=== PATIENT | female | born 1930 | race Caucasian/White ===

== ENCOUNTER 2018-01-17 05:47 | Inpatient (IN) | payer MEDICARE ==
[~2018-01-17] VITALS: Ht 149.9 cm; Wt 53.5 kg
[~2018-01-17 05:47] MED LIST: APIX5TAB PO; CALC12502 PO; DILT60TA PO; FERR325T18 PO; LACTCAP8 PO; METF500T PO; METO1TAB42 PO; NON-325T6 PO; PANT40TA3 PO; TH S8.6T PO; VITA250T3 PO
[2018-01-17] MEDS ORDERED: METOPROLOL TARTRATE 25 MG TAB PO PRN (06:30)
[2018-01-17] MEDS ORDERED: CHLORHEXIDINE GLUCONATE 4% SOLN 120 ML BTL TOPICAL SCH (06:30)
[2018-01-17] MEDS ORDERED: SODIUM CHLORIDE 0.9% IV SCH (06:30)
[2018-01-17] MEDS ORDERED: CHLORHEXIDINE GLUCONATE 2 % 1 PACK (2 CLOTHS) TOPICAL PRN (06:30)
[2018-01-17] MEDS ORDERED: CEFAZOLIN INJ 2,000 MG in SODIUM CHLORIDE 0.9% INJ 100 ML IV SCH (06:30)
[2018-01-17] MEDS ORDERED: POVIDONE IODINE 5% (ANTISEPSIS KIT) 4 APPLICATIONS EACH NARE PRN (06:30)
[2018-01-17] MEDS ORDERED: TRANEXAMIC ACID IV SCH (06:30)
[2018-01-17] MEDS ORDERED: INSULIN HUMAN REGULAR 1,000 UNITS/10 ML VIAL SQ PRN (06:30)
[2018-01-17] MEDS ORDERED: SODIUM CHLORID 0.9% 500 ML IV PRN (06:30)
[2018-01-17] MEDS ORDERED: LACTATED RINGER'S 1000 ML IV PRN (06:30)
[2018-01-17] MEDS ORDERED: VANCOMYCIN 1 GM/200 ML INJ 200 ML IV SCH (06:45)
--- NOTE | 2018-01-17 06:45 | RADRPT ---
EXAM DATE/TIME: 01/17/2018 06:29 [facility] COMPARISON: No previous studies available for comparison. INDICATIONS : Evaluate for pneumothorax, pneumonia, or other communicable disease. Pre op left leg surgery. MEDICAL HISTORY : None. SURGICAL HISTORY : None. ENCOUNTER: Initial ACUITY: 1 day PAIN SCORE: 0/10 LOCATION: Bilateral chest FINDINGS: A single view of the chest demonstrates the lungs to be symmetrically aerated without evidence of mas s, infiltrate or effusion. The cardiomediastinal contours are unremarkable. Osseous structures are intact. CONCLUSION: No acute disease. Drew Reyes MD on January 17, 2018 at 6:43 Board Certified Radiologist. This report was verified electronically.
[2018-01-17] MEDS ORDERED: KLOR20TA3 PO (07:26)
[2018-01-17 07:37] LABS: AUTOMATED NEUTROPHIL # 5.1 TH/MM3 (1.8-7.7); BASOPHIL % 0.4 % (0.0-2.0); EOSINOPHIL # 0.2 TH/MM3 (0-0.4); EOSINOPHIL % 2.1 % (0.0-4.0); HEMATOCRIT 32.4 % (35.0-46.0); HEMOGLOBIN 10.9 GM/DL (11.6-15.3); LYMPH % 20.8 % (9.0-44.0); LYMPHOCYTE # 1.5 TH/MM3 (1.0-4.8); MEAN CELL VOLUME 94.7 FL (80.0-100.0); MEAN CORPUSCULAR HGB CONC 33.8 % (32.0-36.0); MEAN PLATELET VOLUME 8.5 FL (7.0-11.0); MONO % 7.2 % (0.0-8.0); MONOCYTE # 0.5 TH/MM3 (0-0.9); NEUT % 69.5 % (16.0-70.0); PLATELET COUNT 233 TH/MM3 (150-450); RED BLOOD COUNT 3.42 MIL/MM3 (4.00-5.30); RED CELL DISTRIBUTION WIDTH 19.4 % (11.6-17.2); WHITE BLOOD COUNT 7.3 TH/MM3 (4.0-11.0)
[2018-01-17 07:59] LABS: BICARBONATE 25.4 MEQ/L (21.0-32.0); CALCIUM 8.4 MG/DL (8.5-10.1); CREATININE 1.03 MG/DL (0.50-1.00)
[2018-01-17] MEDS ORDERED: ACETAMINOPHEN 1000 MG/100 ML 100 ML IV ONE (08:48)
[2018-01-17] MEDS ORDERED: ceFAZolin 2 GM PREMIX 50 ML ONE (09:00)
[2018-01-17] MEDS ORDERED: HEPARIN SODIUM - SQ 10,000 UNITS/ML VIAL ONE (09:01)
[2018-01-17] MEDS ORDERED: GENTAMICIN SULFATE 80 MG/2 ML VIAL ONE (09:06)
[2018-01-17] MEDS ORDERED: VANCOMYCIN HCL 1000 MG VIAL ONE (10:45)
[2018-01-17] MEDS ORDERED: ERGOCALCIFEROL (VIT D2) 50,000 UNIT CAP PO SCH (11:30)
[2018-01-17] MEDS ORDERED: MORPHINE SULFATE 4 MG/ML INJ IV PUSH PRN (11:30)
[2018-01-17] MEDS ORDERED: ONDANSETRON HCL 4 MG/2 ML VIAL IVP PRN (11:30)
[2018-01-17] MEDS ORDERED: ENOXAPARIN SODIUM 30 MG/0.3 ML SYRINGE SQ SCH (11:30)
[2018-01-17] MEDS: LACTATED RINGER'S 1000 ML INJ 1,000 ML IV SCH (11:30)
[2018-01-17] MEDS ORDERED: Post-op Orders (for Pharmacy) XX ONE (11:30)
[2018-01-17] MEDS ORDERED: NALOXONE HCL 0.4 MG/ML AMP IV PUSH PRN (11:30)
[2018-01-17] MEDS ORDERED: diphenhydrAMINE HCL 25 MG CAP PO PRN (11:30)
[2018-01-17] MEDS ORDERED: HYDROmorphone HCL PF 2 MG/ML VIAL ONE (11:34)
--- NOTE | 2018-01-17 11:41 | PD.OP ---
cc: Kenny Kay MD Operative Report Date of Surgery: Jan 17, 2018 Preoperative Diagnosis: Right femur periprosthetic fracture nonunion Postoperative Diagnosis: Procedure: Removal of deep hardware, open reduction total fixation left femur periprosthetic fracture nonunion Anesthesia: Gen. Surgeon: Kenny Kay Mounter Sousaphones(s): BUSTER Wilkerson PA-C The surgical procedure was assisted by my physician child care center assistant director. My P.A. presence was necessary throughout this case for the manipulation and positioning of the surgical extremity. My P.A. was assisting me throughout the duration of this procedure. The skill set of a physician child care center assistant director was medically necessary to complete this procedure. During the surgical case the certified surgical tech/first assistant was working at the back table and the physician child care center assistant director was directly assisting me. Operation and Findings: This patient previously had a left hip fracture treated with bipolar hemiarthroplasty. She had a secondary fall resulting in a periprosthetic fracture. This was treated with open reduction internal fixation. Patient was partial weightbearing and developed subsequent displacement of fracture. Patient was referred to me for definitive management of this injury. Preoperatively patient was seen and examined. I reviewed the risks and benefits of surgery in depth with patient and her family. Informed consent was obtained, operative site was marked. Patient was brought to the OR, placed on OR table, and given IV sedation with GETA. IV antibiotics were administered and timeout procedure was performed. Patient was placed in lateral decubitus position and the left leg was prepped with alcohol, followed with Hibiclens, draped in usual sterile fashion. A timeout procedure was performed. The procedure began with a 10 incision over the lateral aspect of the femur. Subcutaneous tissue was dissected with Bovie. Iliotibial band was split in line with fibers. The vastus lateralis fascia was incised. The muscle was reflected anteriorly. At this point the hardware was identified. Scar tissue was incised around the hardware to expose the plate. At this point attention was turned hardware removal. The screws were loosened and removed. Cables were cut. The plate was now removed. Next attention was turned towards the fracture. At this point the fracture was visualized. Traction was applied. Fracture was manipulated. The fracture reduced into excellent alignment. Fracture tenaculums were used to hold provisional fixation. Fluoroscopy confirmed anatomic reduction of the fracture. At this point attention was turned to plate placement. A lateral femoral plate was selected. The plate was placed underneath the vastus lateralis and over the top of the greater trochanter. Steinmann pins were used to hold the plate to bone. Multiplanar fluoroscopy confirmed appropriate placement of plate. Multiple 4.5 cortical screws were now placed to compress plate to bone. 4 additional cables were passed around the femur. Care was taken to avoid injury to neurovascular structures. Cables were tensioned appropriately. Multiple locking screws were now placed in the proximal and distal segments of the distal femur. All screws were predrilled and premeasured for appropriate length. Final fluoroscopy revealed excellent alignment of fracture with well-placed hardware. Wound was thoroughly irrigated. Fascia was closed with #1 Vicryl. Subcutaneous tissue was closed with 3-0 Vicryl. Skin was closed with kerry. Sterile dressings were applied. The patient was transferred to recovery in stable condition. Needle and sponge counts were correct. Kenny Kay MD Jan 17, 2018 11:41
--- NOTE | 2018-01-17 11:41 | RADRPT ---
EXAM DATE/TIME: 01/17/2018 11:10 [facility] COMPARISON: No previous studies available for comparison. INDICATIONS : Open reduction internal fixation left femur. MEDICAL HISTORY : None. SURGICAL HISTORY : None. ENCOUNTER: Initial ACUITY: 1 day PAIN SCORE: Non-responsive. LOCATION: Left Femur FINDINGS: Postop left total hip replacement. Plate and screw fixation of the proximal femur with cerclage wires and multiple screws. CONCLUSION: 1. Fixation left femur. Satnam Walker MD on January 17, 2018 at 11:38 Board Certified Radiologist. This report was verified electronically.
[2018-01-17] MEDS ORDERED: DEXTROSE 50% IN WATER 50 ML VIAL(D50) IV PUSH PRN (11:45)
[2018-01-17] MEDS ORDERED: GLUCAGON 1 MG/ML VIAL OTHER PRN (11:45)
[2018-01-17] MEDS ORDERED: GLYCOPYRROLATE 1 MG/5 ML SYRINGE IV PUSH ONE (12:00)
[2018-01-17] MEDS ORDERED: LACTATED RINGER'S 1000 ML INJ 1,000 ML IV ONE (12:00)
[2018-01-17] MEDS ORDERED: PROPOFOL 200 MG/20 ML AMP IV ONE (12:00)
[2018-01-17] MEDS ORDERED: PHENYLEPH/NS 1000 MCG/10 ML SYR IV ONE (12:00)
[2018-01-17] MEDS: INSULIN NovoLIN REGULAR SUPPLEMENTAL SCALE SQ SCH ×3 (12:00→21:17)
[2018-01-17] MEDS ORDERED: DEXAMETHASONE SOD PHOS 4 MG/ML VIAL IV ONE (12:00)
[2018-01-17] MEDS ORDERED: ROCURONIUM INJ 50 MG/5 ML SYRINGE IV PUSH ONE (12:00)
[2018-01-17] MEDS ORDERED: ONDANSETRON HCL 4 MG/2 ML VIAL IV ONE (12:00)
[2018-01-17] MEDS ORDERED: LIDOCAINE HCL 1% PF 5 ML SYRINGE OTHER ONE (12:00)
[2018-01-17] MEDS ORDERED: NEOSTIGMINE 5 MG/5 ML SYRINGE IV PUSH ONE (12:00)
[2018-01-17] MEDS ORDERED: DO NOT ADM ANY ANTICOAGULANT DRUGS PRN (12:06)
[2018-01-17] MEDS ORDERED: *ONDANSETRON 4 MG VIAL PERIprocedural Use ONLY ONE (12:13)
[2018-01-17] MEDS ORDERED: *PROMETHAZINE 25 MG/ML VIAL PERIprocedural use ONLY ONE (12:26)
[2018-01-17] MEDS ORDERED: *LABETALOL HCL 100 MG/20 ML VIAL PERIprocedural Use ONLY ONE (12:38)
[2018-01-17] MEDS: DILTIAZEM HCL 60 MG TAB PO SCH ×3 (13:00→21:15)
[2018-01-17] MEDS ORDERED: DILTIAZEM HCL 25 MG/5 ML VIAL ONE (13:46)
[2018-01-17] MEDS ORDERED: *ENALAPRILAT 1.25 MG/ML VIAL PERIprocedural Use ONLY ONE (14:11)
[2018-01-17] MEDS ORDERED: MORPHINE SULFATE 2 MG/ML INJ ONE (14:58)
[2018-01-17] MEDS ORDERED: DILTIAZEM HCL 50 MG/10 ML VIAL IV ONE (15:00)
[2018-01-17 15:30] VITALS: BP 129/69; PULSE 89; RESP 17; TEMP 97.3; O2SAT 98
--- NOTE | 2018-01-17 15:49 | EKG ---
Date Performed: 01/17/2018 Time Performed: 06:48:43 PTAGE: 87 years EKG: ATRIAL FIBRILLATION WITH SLOW VENTRICULAR RESPONSE MARKED LEFT AXIS DEVIATION PATTERN CONSI STENT WITH PULMONARY DISEASE MODERATE VOLTAGE CRITERIA FOR LVH, CONSIDER NORMAL VARIANT ABNORMAL ECG PREVIOUS TRACING : 03/17/2012 09.15 Atiral fibrillation is new since prior tracing. DOCTOR: Mika Peralta Interpretating Date/Time 01/17/2018 15:45:39
--- NOTE | 2018-01-17 16:22 | PD.CONS ---
HPI Service [facility] Hospitalists Consult Requested By Dr. Prieto Reason for Consult Medical management Primary Care Physician Jason Parry MD Diagnoses: History of Present Illness 87-year-old white female admitted for open reduction internal fixation of traumatic left periprosthetic femur fracture. Hospitalist consulted for medical management. Per the patient she had been in her usual state of health up until recently when she lost her balance at home landing on her left leg and experiencing severe pain. She had been at a rehab facility just prior to this where she was discharged to after a MINOR. However, she had a 2dry fall resulting in a periprosthetic fracture of the left femur. This was treated with open reduction internal fixation. Patient denies having any chest pain or shortness of breath surrounding her most recent left leg fracture event. She is in her room at this time with her and sister present. They state that together they manage her medications. 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 Patient also has a known history of atrial fibrillation and is on diltiazem and Lopressor. She is also a diabetic. Review of Systems Except as stated in HPI: all other systems reviewed are Neg Past Family Social History Allergies: Coded Allergies: No Known Allergies (Unverified Allergy, Unknown, 01/17/18) Past Medical History Left hip fracture Right radius fracture Atrial fibrillation DVT Diabetes Past Surgical History left MINOR Family History HTN Social History lives with her Physical Exam Vital Signs Vital Signs Date Time Temp Pulse Resp B/P (MAP) Pulse Ox O2 Delivery O2 Flow Rate FiO2 01/17/18 15:30 97.3 89 17 129/69 (89) 98 01/17/18 15:08 97.9 84 16 149/88 (108) 99 Room Air 01/17/18 14:15 84 16 152/56 (88) 99 Room Air 01/17/18 13:45 82 17 177/77 (110) 99 Room Air 01/17/18 13:15 95 15 170/70 (103) 99 Room Air 01/17/18 13:00 82 15 160/65 (96) 99 Nasal Cannula 3 01/17/18 12:45 89 15 166/124 (138) 99 Nasal Cannula 3 01/17/18 12:30 83 15 205/77 (119) 99 Nasal Cannula 3 01/17/18 12:13 97.9 77 15 117/69 (85) 99 Nasal Cannula 3 01/17/18 07:34 97.9 54 20 143/57 (85) 97 Physical Exam VS: afebrile GENERAL: Lying in bed, no acute distress, awake, alert, thin elderly female SKIN: Warm and dry. EYES: No scleral icterus. No injection or drainage. ENT: No nasal bleeding or discharge. Mucous membranes pink and moist. CARDIOVASCULAR: Regular rate and rhythm. no murmurs RESPIRATORY: No accessory muscle use. Clear to auscultation. Breath sounds equal bilaterally. GASTROINTESTINAL: Abdomen soft, non-tender, nondistended. Extremities: No clubbing, cyanosis. Proximal left leg with postop dressing with no surrounding erythema. MUSCULOSKELETAL: adequate muscle bulk and tone for age and habitus; bilateral feet are neurovascularly intact, right forearm is in cast NEUROLOGICAL: Awake and alert. No obvious cranial nerve deficits. No facial droop nor slurred speech noted. PSYCHIATRIC: Appropriate mood and affect; insight and judgment normal. Laboratory Laboratory Tests Test 01/17/18 07:20 01/17/18 13:39 White Blood Count 7.3 Red Blood Count 3.42 Hemoglobin 10.9 Hematocrit 32.4 Mean Corpuscular Volume 94.7 Mean Corpuscular Hemoglobin 32.0 Mean Corpuscular Hemoglobin Concent 33.8 Red Cell Distribution Width 19.4 Platelet Count 233 Mean Platelet Volume 8.5 Neutrophils (%) (Auto) 69.5 Lymphocytes (%) (Auto) 20.8 Monocytes (%) (Auto) 7.2 Eosinophils (%) (Auto) 2.1 Basophils (%) (Auto) 0.4 Neutrophils # (Auto) 5.1 Lymphocytes # (Auto) 1.5 Monocytes # (Auto) 0.5 Eosinophils # (Auto) 0.2 Basophils # (Auto) 0.0 CBC Comment DIFF FINAL Differential Comment Blood Urea Nitrogen 12 Creatinine 1.03 Random Glucose 128 Calcium Level 8.4 Sodium Level 142 Potassium Level 4.0 Chloride Level 109 Carbon Dioxide Level 25.4 Anion Gap 8 Estimat Glomerular Filtration Rate 51 Date/Time Source Procedure Growth Status 01/17/18 10:24 Wound Other Fungal Smear - Final NO FUNGAL ELEMENTS SEEN. Resulted 01/17/18 10:24 Wound Other Fungal Culture Pending Resulted Result Diagram: 01/17/18 0701/17/18 0720 Imaging Last Impressions Femur X-Ray 01/17/18 0000 Signed Impressions: Service Date/Time: Wednesday, January 17, 2018 11:10 - CONCLUSION: 1. Fixation left femur. Satnam Walker MD Chest X-Ray 01/17/18 0000 Signed Impressions: Service Date/Time: Wednesday, January 17, 2018 06:29 - CONCLUSION: No acute disease. Drew Reyes MD Assessment and Plan Assessment and Plan Left femur periprosthetic fracture now status post ORIF -Orthopedic managing this as well as pain control A. fib -Continue home diltiazem and Toprol xL -Given stroke risk, Eliquis is appropriate to continue Hypertension -Stable at this time, continue home medications Hx of DVT - continue eliquis 5 mg BID DM - may proceed with home metformin - modified diet right possible radius fx - remain in cast, to f/u with original orthopedic surgeon for further management Juice Cha MD Jan 17, 2018 16:22
[2018-01-17 17:13] VITALS: O2SAT 97
[2018-01-17] MEDS: metFORMIN HCL 500 MG TAB PO SCH (17:37)
[2018-01-17] MEDS: ACETAMINOPHEN/HYDROcodone 325 MG/7.5 MG TAB PO PRN (17:37)
[2018-01-17] MEDS: CEFAZOLIN INJ 2,000 MG in SODIUM CHLORIDE 0.9% INJ 100 ML IV SCH (18:26)
[2018-01-17 20:21] VITALS: BP 143/69; PULSE 82; RESP 17; TEMP 98.2; O2SAT 97
[2018-01-17] MEDS: DOCUSATE SODIUM 50 MG/SENNA 8.6 MG TAB PO SCH (21:15)
[2018-01-17] MEDS: POTASSIUM CHLORIDE 20 MEQ CONTROLLED RELEASE TAB PO SCH (21:15)
[2018-01-17 21:49] VITALS: O2SAT 96
[2018-01-18] VITALS (7 sets, daily range): BP systolic 116–149; BP diastolic 57–67; PULSE 73–104; RESP 16–18; TEMP 97.5–98.2; O2SAT 95–100
[2018-01-18] MEDS: CEFAZOLIN INJ 2,000 MG in SODIUM CHLORIDE 0.9% INJ 100 ML IV SCH ×3 (02:34→17:38)
--- NOTE | 2018-01-18 06:54 | PD.ORT.PN ---
Subjective Subjective Remarks Pain controlled and doing well. She is confused Objective Vitals Vital Signs Date Time Temp Pulse Resp B/P (MAP) Pulse Ox O2 Delivery O2 Flow Rate FiO2 01/18/18 04:30 98.0 92 18 129/63 (85) 97 01/18/18 00:05 97.5 95 17 149/67 (94) 95 01/17/18 21:49 96 01/17/18 20:21 98.2 82 17 143/69 (93) 97 01/17/18 17:13 97 21 01/17/18 15:30 97.3 89 17 129/69 (89) 98 01/17/18 15:08 97.9 84 16 149/88 (108) 99 Room Air 01/17/18 14:15 84 16 152/56 (88) 99 Room Air 01/17/18 13:45 82 17 177/77 (110) 99 Room Air 01/17/18 13:15 95 15 170/70 (103) 99 Room Air 01/17/18 13:00 82 15 160/65 (96) 99 Nasal Cannula 3 01/17/18 12:45 89 15 166/124 (138) 99 Nasal Cannula 3 01/17/18 12:30 83 15 205/77 (119) 99 Nasal Cannula 3 01/17/18 12:13 97.9 77 15 117/69 (85) 99 Nasal Cannula 3 01/17/18 07:34 97.9 54 20 143/57 (85) 97 I/O 01/17/18 01/17/18 01/17/18 01/18/18 01/18/18 01/18/18 07:00 15:00 23:00 07:00 15:00 23:00 Intake Total 1000 ml 125 ml 360 ml Output Total 600 ml 0 ml Balance 400 ml 125 ml 360 ml Intake Oral 360 ml IV Total 125 ml Other 1000 ml Output Urine Total 0 ml 0 ml Estimated Blood Loss 600 ml # Voids 4 # Bowel Movements 0 Result Diagram: 01/17/1871901/17/18719 Imaging Last 72 hours Impressions Femur X-Ray 01/17/18 0000 Signed Impressions: Service Date/Time: Wednesday, January 17, 2018 11:10 - CONCLUSION: 1. Fixation left femur. Satnam Walker MD Chest X-Ray 01/17/18 0000 Signed Impressions: Service Date/Time: Wednesday, January 17, 2018 06:29 - CONCLUSION: No acute disease. Drew Reyes MD Objective Remarks Left lower extremity: Clean dry dressings intact. Mild swelling. Distally intact sensation good capillary refills Assessment & Plan Assessment and Plan Left periprosthetic proximal femur fracture with open reduction internal fixation POD 1 Nonweightbearing left lower extremity Begin daily dressing changes POD 2 Lovenox Incentive spirometry Case management for rehabilitation placement Follow-up with Dr. Kay or PA in 2 weeks Dhruv Murrieta Jr. Jan 18, 2018 06:54
[2018-01-18 06:57] LABS: HEMATOCRIT 26.7 % (35.0-46.0); HEMOGLOBIN 8.8 GM/DL (11.6-15.3)
[2018-01-18] MEDS: INSULIN NovoLIN REGULAR SUPPLEMENTAL SCALE SQ SCH ×4 (08:00→20:14)
[2018-01-18] MEDS: METOPROLOL SUCCINATE 25 MG EXTENDED RELEASE TAB PO SCH (09:00)
[2018-01-18] MEDS: FERROUS SULFATE 325 MG (65 MG ELEMENTAL IRON) TAB PO SCH (09:30)
[2018-01-18] MEDS: DILTIAZEM HCL 60 MG TAB PO SCH ×4 (09:30→20:12)
[2018-01-18] MEDS: CHOLECALCIFEROL (VIT D3) 1000 UNIT TAB PO SCH (09:30)
[2018-01-18] MEDS: DOCUSATE SODIUM 50 MG/SENNA 8.6 MG TAB PO SCH ×2 (09:30→20:12)
[2018-01-18] MEDS: metFORMIN HCL 500 MG TAB PO SCH ×2 (09:30→17:37)
[2018-01-18] MEDS: APIXABAN 5 MG TABLET PO SCH ×2 (09:30→20:14)
[2018-01-18] MEDS: PANTOPRAZOLE SOD 40 MG DELAYED RELEASE TAB PO SCH (09:34)
[2018-01-18] MEDS: POTASSIUM CHLORIDE 20 MEQ CONTROLLED RELEASE TAB PO SCH ×2 (09:34→20:12)
[2018-01-18] MEDS: VANCOMYCIN INJ 1,000 MG in SODIUM CHLOR 0.9% 250 ML INJ 250 ML IV SCH (10:48)
[2018-01-18] MEDS: ACETAMINOPHEN/HYDROcodone 325 MG/7.5 MG TAB PO PRN ×2 (11:46→15:53)
[2018-01-18] MEDS: LACTATED RINGER'S 1000 ML INJ 1,000 ML IV SCH ×3 (11:55→20:15)
--- NOTE | 2018-01-18 13:47 | HHI.PR ---
Subjective Remarks Pt states pain is controlled but does get pain w movement. About to eat a salad. No chest pains/sob/n//v Discussed w RN, oozing noted over dressing. Objective Vitals Vital Signs Date Time Temp Pulse Resp B/P (MAP) Pulse Ox O2 Delivery O2 Flow Rate FiO2 01/18/18 12:00 98.2 99 18 146/59 (88) 98 01/18/18 08:00 97.8 104 18 134/63 (86) 99 01/18/18 04:30 98.0 92 18 129/63 (85) 97 01/18/18 00:05 97.5 95 17 149/67 (94) 95 01/17/18 21:49 96 01/17/18 20:21 98.2 82 17 143/69 (93) 97 01/17/18 17:13 97 21 01/17/18 15:30 97.3 89 17 129/69 (89) 98 01/17/18 15:08 97.9 84 16 149/88 (108) 99 Room Air 01/17/18 14:15 84 16 152/56 (88) 99 Room Air I/O 01/17/18 01/17/18 01/17/18 01/18/18 01/18/18 01/18/18 07:00 15:00 23:00 07:00 15:00 23:00 Intake Total 1000 ml 125 ml 360 ml Output Total 600 ml 0 ml Balance 400 ml 125 ml 360 ml Intake Oral 360 ml IV Total 125 ml Other 1000 ml Output Urine Total 0 ml 0 ml Estimated Blood Loss 600 ml # Voids 4 # Bowel Movements 0 Result Diagram: 01/18/18 0450 01/17/18 0720 Imaging Last Impressions Femur X-Ray 01/17/18 0000 Signed Impressions: Service Date/Time: Wednesday, January 17, 2018 11:10 - CONCLUSION: 1. Fixation left femur. Satnam Walker MD Chest X-Ray 01/17/18 0000 Signed Impressions: Service Date/Time: Wednesday, January 17, 2018 06:29 - CONCLUSION: No acute disease. Drew Reyes MD Objective Remarks GENERAL: sitting up on recliner,about to eat a salad CARDIOVASCULAR: Regular rate and rhythm. no murmurs RESPIRATORY: No accessory muscle use. Clear to auscultation. Breath sounds equal bilaterally. GASTROINTESTINAL: Abdomen soft, non-tender, nondistended. Extremities: Proximal left leg with postop dressing with some oozing noted MUSCULOSKELETAL: able to move the right lower extremities and her upper ext NEUROLOGICAL: Awake and alert.pleasant A/P Assessment and Plan Left femur periprosthetic fracture now status post ORIF -Management per orthopedic sx. -oozing noted over dressing. Hb was 8.8 this morning, check Hb this pm and tomorrow morning. follow trend. Transfuse if Hb <7 and/or if symptomatic. A. fib -Continue home diltiazem and Toprol xL -Given stroke risk, Eliquis is appropriate to continue Hypertension -Stable at this time, continue home medications Hx of DVT - continue eliquis 5 mg BID DM - on home metformin - modified diet right possible radius fx - remain in cast, to f/u with original orthopedic surgeon for further management Discharge Planning per primary team Violette Aguilar MD Jan 18, 2018 13:47
[2018-01-18 15:25] LABS: HEMATOCRIT 24.9 % (35.0-46.0); HEMOGLOBIN 8.4 GM/DL (11.6-15.3)
[2018-01-19] VITALS (12 sets, daily range): BP systolic 116–147; BP diastolic 54–65; PULSE 64–111; RESP 16–20; TEMP 97.6–98.7; O2SAT 95–98
[2018-01-19] MEDS: CEFAZOLIN INJ 2,000 MG in SODIUM CHLORIDE 0.9% INJ 100 ML IV SCH ×2 (01:50→09:10)
[2018-01-19] MEDS: BACITRACIN TOP OINT 15 GM TUBE TOPICAL PRN (03:53)
[2018-01-19] MEDS ORDERED: NORC5TAB PO (06:24)
[2018-01-19] MEDS ORDERED: CALCTAB19 PO (06:24)
[2018-01-19] MEDS ORDERED: VITA2000 PO (06:24)
[2018-01-19] MEDS ORDERED: VITA500012 PO (06:24)
--- NOTE | 2018-01-19 06:28 | PD.ORT.PN ---
Subjective Subjective Remarks POD 1 s/p ALHAJI with ORIF of left periprosthetic proximal femur fx -doing well. reports pain controlled. Objective Vitals Vital Signs Date Time Temp Pulse Resp B/P (MAP) Pulse Ox O2 Delivery O2 Flow Rate FiO2 01/19/18 03:30 97.8 110 18 116/54 (74) 98 01/18/18 23:43 98.1 73 16 116/57 (76) 96 01/18/18 20:00 98.0 95 18 144/63 (90) 99 01/18/18 16:00 97.9 76 18 134/59 (84) 100 01/18/18 12:00 98.2 99 18 146/59 (88) 98 01/18/18 08:00 97.8 104 18 134/63 (86) 99 I/O 01/18/18 01/18/18 01/18/18 01/19/18 01/19/18 01/19/18 07:00 15:00 23:00 07:00 15:00 23:00 Intake Total 360 ml 480 ml 360 ml Balance 360 ml 480 ml 360 ml Intake Oral 360 ml 480 ml 360 ml # Voids 4 4 3 # Bowel Movements 0 1 1 Result Diagram: 01/18/18 1454 01/17/18 0720 Imaging Last 72 hours Impressions Femur X-Ray 01/17/18 0000 Signed Impressions: Service Date/Time: Wednesday, January 17, 2018 11:10 - CONCLUSION: 1. Fixation left femur. Satnam Walker MD Chest X-Ray 01/17/18 0000 Signed Impressions: Service Date/Time: Wednesday, January 17, 2018 06:29 - CONCLUSION: No acute disease. Drew Reyes MD Objective Remarks Left lower extremity: Clean dry dressings intact. Mild swelling. Distally intact sensation good capillary refills Assessment & Plan Assessment and Plan 1) Left periprosthetic proximal femur fracture with open reduction internal fixation POD 2 Nonweightbearing left lower extremity Begin daily dressing changes POD 2 Lovenox Incentive spirometry Case management for rehabilitation placement Follow-up with Dr. Kay or PA in 2 weeks Philip Kim/Building Maintenance Technician PA Jan 19, 2018 06:28
[2018-01-19 07:03] LABS: HEMATOCRIT 22.1 % (35.0-46.0); HEMOGLOBIN 7.5 GM/DL (11.6-15.3)
[2018-01-19] MEDS: INSULIN NovoLIN REGULAR SUPPLEMENTAL SCALE SQ SCH ×4 (07:19→20:46)
[2018-01-19] MEDS: metFORMIN HCL 500 MG TAB PO SCH ×2 (08:44→17:44)
[2018-01-19] MEDS: PANTOPRAZOLE SOD 40 MG DELAYED RELEASE TAB PO SCH (08:44)
[2018-01-19] MEDS: CHOLECALCIFEROL (VIT D3) 1000 UNIT TAB PO SCH (08:44)
[2018-01-19] MEDS: METOPROLOL SUCCINATE 25 MG EXTENDED RELEASE TAB PO SCH (08:45)
[2018-01-19] MEDS: DILTIAZEM HCL 60 MG TAB PO SCH ×4 (08:45→20:45)
[2018-01-19] MEDS: ACETAMINOPHEN/HYDROcodone 325 MG/7.5 MG TAB PO PRN ×3 (08:45→15:48)
[2018-01-19] MEDS: POTASSIUM CHLORIDE 20 MEQ CONTROLLED RELEASE TAB PO SCH ×2 (08:45→20:45)
[2018-01-19] MEDS: APIXABAN 5 MG TABLET PO SCH ×2 (08:45→20:45)
[2018-01-19] MEDS: DOCUSATE SODIUM 50 MG/SENNA 8.6 MG TAB PO SCH ×2 (08:45→20:45)
[2018-01-19] MEDS: FERROUS SULFATE 325 MG (65 MG ELEMENTAL IRON) TAB PO SCH (08:45)
--- NOTE | 2018-01-19 09:28 | HHI.PR ---
Subjective Remarks Pt states pain better controlled. doing her IS as instructed. No nausea or vomiting, no CP/SOB Objective Vitals Vital Signs Date Time Temp Pulse Resp B/P (MAP) Pulse Ox O2 Delivery O2 Flow Rate FiO2 01/19/18 08:00 97.9 111 16 144/59 (87) 96 01/19/18 03:30 97.8 110 18 116/54 (74) 98 01/18/18 23:43 98.1 73 16 116/57 (76) 96 01/18/18 20:00 98.0 95 18 144/63 (90) 99 01/18/18 16:00 97.9 76 18 134/59 (84) 100 01/18/18 12:00 98.2 99 18 146/59 (88) 98 I/O 01/18/18 01/18/18 01/18/18 01/19/18 01/19/18 01/19/18 07:00 15:00 23:00 07:00 15:00 23:00 Intake Total 360 ml 480 ml 360 ml Balance 360 ml 480 ml 360 ml Intake Oral 360 ml 480 ml 360 ml # Voids 4 4 3 # Bowel Movements 0 1 1 Result Diagram: 01/19/18 0506 01/17/18 0720 Imaging Last Impressions Femur X-Ray 01/17/18 0000 Signed Impressions: Service Date/Time: Wednesday, January 17, 2018 11:10 - CONCLUSION: 1. Fixation left femur. Satnam Walker MD Chest X-Ray 01/17/18 0000 Signed Impressions: Service Date/Time: Wednesday, January 17, 2018 06:29 - CONCLUSION: No acute disease. Drew Reyes MD Objective Remarks GENERAL: sitting up on recliner,about to eat a salad CARDIOVASCULAR: mildly tachycardic. no murmurs RESPIRATORY: No accessory muscle use. Clear to auscultation. Breath sounds equal bilaterally. GASTROINTESTINAL: Abdomen soft, non-tender, nondistended. Extremities: Proximal left leg with postop dressing d/c/i, no oozing noted this morning MUSCULOSKELETAL: able to move the right lower extremities and her upper ext NEUROLOGICAL: Awake and alert.pleasant A/P Assessment and Plan Left femur periprosthetic fracture now status post ORIF -Management per orthopedic sx. -oozing noted over dressing. Hb was 7.5 this morning, Pt's HR is in the low 100' s. will go ahead and transfuse 1 unit PRBC. Monitor H&H closely. A. fib -Continue home diltiazem and Toprol xL -Given stroke risk, Eliquis is appropriate to continue Hypertension -Stable at this time, continue home medications Hx of DVT - continue eliquis 5 mg BID DM - on home metformin - modified diet right possible radius fx - remain in cast, to f/u with original orthopedic surgeon for further management Discharge Planning per primary team Violette Aguilar MD Jan 19, 2018 09:28
[2018-01-19] MEDS ORDERED: SODIUM CHLOR 0.9% 250 ML INJ 250 ML IV ONE (09:30)
[2018-01-19] MEDS: VANCOMYCIN INJ 1,000 MG in SODIUM CHLOR 0.9% 250 ML INJ 250 ML IV SCH (10:17)
[2018-01-19] MEDS: LACTATED RINGER'S 1000 ML INJ 1,000 ML IV SCH (13:30)
[2018-01-19 20:02] LABS: HEMATOCRIT 27.3 % (35.0-46.0); HEMOGLOBIN 9.3 GM/DL (11.6-15.3)
[2018-01-20] MEDS: LACTATED RINGER'S 1000 ML INJ 1,000 ML IV SCH ×2 (01:56→14:30)
[2018-01-20] MEDS: BACITRACIN TOP OINT 15 GM TUBE TOPICAL PRN (04:23)
[2018-01-20 04:25] VITALS: BP 144/61; PULSE 86; RESP 16; TEMP 98.6; O2SAT 94
[2018-01-20] MEDS: INSULIN NovoLIN REGULAR SUPPLEMENTAL SCALE SQ SCH ×4 (07:16→20:50)
[2018-01-20 07:59] LABS: HEMATOCRIT 28.3 % (35.0-46.0); HEMOGLOBIN 9.6 GM/DL (11.6-15.3)
[2018-01-20 08:00] VITALS: BP 150/70; PULSE 93; RESP 18; TEMP 98.1; O2SAT 95
--- NOTE | 2018-01-20 08:49 | PD.ORT.PN ---
Subjective Subjective Remarks Pain controlled and doing well. Objective Vitals Vital Signs Date Time Temp Pulse Resp B/P (MAP) Pulse Ox O2 Delivery O2 Flow Rate FiO2 01/20/18 04:25 98.6 86 16 144/61 (88) 94 01/19/18 23:35 98.1 65 16 145/65 (91) 97 01/19/18 20:38 21 01/19/18 20:21 97.9 83 17 124/60 (81) 97 01/19/18 18:30 98.7 82 20 147/63 (91) 95 01/19/18 17:00 98.4 64 18 126/63 (84) 97 01/19/18 15:26 98.1 72 16 122/59 (80) 97 01/19/18 15:18 98.1 72 16 122/59 97 01/19/18 12:10 97.6 88 18 121/56 97 01/19/18 12:01 98.0 94 16 130/59 (82) 98 01/19/18 11:51 98.0 94 16 130/59 98 I/O 01/19/18 01/19/18 01/19/18 01/20/18 01/20/18 01/20/18 07:00 15:00 23:00 07:00 15:00 23:00 Intake Total 360 ml 600 ml 400 ml 480 ml 600 ml Balance 360 ml 600 ml 400 ml 480 ml 600 ml Intake Oral 360 ml 600 ml 480 ml IV Total 600 ml Packed Cells 400 ml # Voids 3 3 3 # Bowel Movements 1 2 0 Result Diagram: 01/20/18 0640 01/17/18 0720 Imaging Last 72 hours Impressions Femur X-Ray 01/17/18 0000 Signed Impressions: Service Date/Time: Wednesday, January 17, 2018 11:10 - CONCLUSION: 1. Fixation left femur. Satnam Walker MD Chest X-Ray 01/17/18 0000 Signed Impressions: Service Date/Time: Wednesday, January 17, 2018 06:29 - CONCLUSION: No acute disease. Drew Reyes MD Objective Remarks Left lower extremity: Clean dry dressings intact. Mild swelling. Distally intact sensation good capillary refills Assessment & Plan Assessment and Plan 1) Left periprosthetic proximal femur fracture with open reduction internal fixation POD 3 Nonweightbearing left lower extremity Daily dressing changes Lovenox Incentive spirometry Case management for rehabilitation placement - discharge when bed available Follow-up with Dr. Kay or PA in 2 weeks Dhruv Murrieta Jr. Jan 20, 2018 08:49
[2018-01-20] MEDS: METOPROLOL SUCCINATE 25 MG EXTENDED RELEASE TAB PO SCH (08:55)
[2018-01-20] MEDS: FERROUS SULFATE 325 MG (65 MG ELEMENTAL IRON) TAB PO SCH (08:55)
[2018-01-20] MEDS: DILTIAZEM HCL 60 MG TAB PO SCH ×4 (08:55→20:51)
[2018-01-20] MEDS: PANTOPRAZOLE SOD 40 MG DELAYED RELEASE TAB PO SCH (08:55)
[2018-01-20] MEDS: APIXABAN 5 MG TABLET PO SCH ×2 (08:55→20:51)
[2018-01-20] MEDS: POTASSIUM CHLORIDE 20 MEQ CONTROLLED RELEASE TAB PO SCH ×2 (08:55→20:51)
[2018-01-20] MEDS: metFORMIN HCL 500 MG TAB PO SCH ×2 (08:55→17:55)
[2018-01-20] MEDS: CHOLECALCIFEROL (VIT D3) 1000 UNIT TAB PO SCH (08:56)
[2018-01-20] MEDS: DOCUSATE SODIUM 50 MG/SENNA 8.6 MG TAB PO SCH ×2 (08:56→20:50)
[2018-01-20] MEDS: ACETAMINOPHEN/HYDROcodone 325 MG/7.5 MG TAB PO PRN (08:56)
--- NOTE | 2018-01-20 09:34 | HHI.PR ---
Subjective Remarks in no acute distress. pain is controlled. no other complaints. Objective Vitals Vital Signs Date Time Temp Pulse Resp B/P (MAP) Pulse Ox O2 Delivery O2 Flow Rate FiO2 01/20/18 08:00 98.1 93 18 150/70 (96) 95 01/20/18 04:25 98.6 86 16 144/61 (88) 94 01/19/18 23:35 98.1 65 16 145/65 (91) 97 01/19/18 20:38 21 01/19/18 20:21 97.9 83 17 124/60 (81) 97 01/19/18 18:30 98.7 82 20 147/63 (91) 95 01/19/18 17:00 98.4 64 18 126/63 (84) 97 01/19/18 15:26 98.1 72 16 122/59 (80) 97 01/19/18 15:18 98.1 72 16 122/59 97 01/19/18 12:10 97.6 88 18 121/56 97 01/19/18 12:01 98.0 94 16 130/59 (82) 98 01/19/18 11:51 98.0 94 16 130/59 98 I/O 01/19/18 01/19/18 01/19/18 01/20/18 01/20/18 01/20/18 07:00 15:00 23:00 07:00 15:00 23:00 Intake Total 360 ml 600 ml 400 ml 480 ml 600 ml Balance 360 ml 600 ml 400 ml 480 ml 600 ml Intake Oral 360 ml 600 ml 480 ml IV Total 600 ml Packed Cells 400 ml # Voids 3 3 3 # Bowel Movements 1 2 0 Result Diagram: 01/20/18 0640 01/17/18 0720 Imaging Last Impressions Femur X-Ray 01/17/18 0000 Signed Impressions: Service Date/Time: Wednesday, January 17, 2018 11:10 - CONCLUSION: 1. Fixation left femur. Satnam Walker MD Chest X-Ray 01/17/18 0000 Signed Impressions: Service Date/Time: Wednesday, January 17, 2018 06:29 - CONCLUSION: No acute disease. Drew Reyes MD Objective Remarks GENERAL: This is a well-nourished, well-developed patient, in no apparent distress. CARDIOVASCULAR: Regular rate and regular rhythm without murmurs, gallops, or rubs. RESPIRATORY: Clear to auscultation. Breath sounds equal bilaterally. No wheezes , rales, or rhonchi. GASTROINTESTINAL: Abdomen soft, non-tender, nondistended. Normal, active bowel sounds MUSCULOSKELETAL: Extremities without clubbing, cyanosis, or edema. NEURO: Alert & Oriented x4 to person, place, time, situation. Moves all ext x4 Medications and IVs Inpatient Medications Acetaminophen/ Hydrocodone Bitart ([place] 7.5-325 Mg) 1 tab Q3H PRN PO PAIN 3< 10 Last administered on 01/20/18at 08:56; Start 01/17/18 at 11:30 Apixaban (Eliquis) 5 mg BID PO Last administered on 01/20/18at 08:55; Start at 09:00 Bacitracin (Baciguent Oint) APPLY WITH DRESSING CHANGES UNSCH PRN TOPICAL WITH DRESSING CHANGES Last administered on 01/20/18at 04:23; Start 01/19/18 at 02:30 Cefazolin Sodium 2000 mg/Sodium Chloride 120 ml @ 100 mls/hr Q8H IV Last administered on 01/19/18at 09:10; Start 01/17/18 at 18:00; Stop 01/19/18 at 11:11 ; Status DC Chlorhexidine Gluconate (Chlorhexidine 2% Cloth) 3 pack PUBLIC POLICY PROFESSOR PRN TOPICAL SEE LABEL COMMENTS Last administered on 01/17/18at 07:48; Start 01/17/18 at 06:30 ; Stop 01/20/18 at 06:29; Status DC Chlorhexidine Gluconate (Hibiclens 4% Top Soln) 1 applic ONCE TOPICAL ; Start at 06:30; Stop 01/20/18 at 06:29; Status DC Cholecalciferol (Vitamin D3) 1,000 units DAILY PO Last administered on at 08:56; Start 01/18/18 at 09:00 Dextrose (D50w (Vial) Inj) 50 ml UNSCH PRN IV PUSH HYPOGLYCEMIA-SEE COMMENTS; Start 01/17/18 at 11:45 Diltiazem HCl (Cardizem Inj) 5 mg NOW ONCE IV ; Start 01/17/18 at 15:00; Stop 01/17/18 at 15:01; Status DC Diltiazem HCl (Cardizem) 60 mg QID PO Last administered on 01/20/18at 08:55; Start 01/17/18 at 13:00 Diphenhydramine HCl (Benadryl) 25 mg Q6H PRN PO ITCHING; Start 01/17/18 at 11: 30 Enoxaparin Sodium (Lovenox Inj) 30 mg Q24H SQ ; Start 01/17/18 at 11:30; Stop at 11:37; Status DC Ergocalciferol (Drisdol) 50,000 units Q7D PO ; Start 01/17/18 at 11:30 Ferrous Sulfate (Ferrous Sulfate) 325 mg DAILY PO Last administered on at 08:55; Start 01/18/18 at 09:00 Glucagon (Glucagon Inj) 1 mg UNSCH PRN OTHER HYPOGLYCEMIA-SEE COMMENTS; Start 01/17/18 at 11:45 Insulin Human Regular (NovoLIN R SUPPLEMENTAL SCALE) 1 ACHS SQ Last administered on 01/19/18at 17:00; Start 01/17/18 at 12:00 Insulin Human Regular (NovoLIN R INJ) See Protocol Table ... PUBLIC POLICY PROFESSOR PRN SQ SEE PROTOCOL TABLE; Start 01/17/18 at 06:30; Stop 01/20/18 at 06:29; Status DC Lactated Ringer's 1,000 ml @ 80 mls/hr [id number] IV Last administered on at 11:30; Start 01/17/18 at 11:30 Metformin HCl (Glucophage) 500 mg BIDPC PO Last administered on 01/20/18at 08:55 ; Start 01/17/18 at 18:00 Metoprolol Succinate (Toprol Xl) 25 mg DAILY PO Last administered on 01/20/18at 08:55; Start 01/18/18 at 09:00 Metoprolol Tartrate (Lopressor) 25 mg PUBLIC POLICY PROFESSOR PRN PO SEE LABEL COMMENTS Last administered on 01/18/18at 09:34; Start 01/17/18 at 06:30; Stop 01/20/18 at 06:29 ; Status DC Miscellaneous Information ALL NURSING DEPARTME... UNSCH PRN .XX SEE LABEL COMMENTS; Start 01/17/18 at 12:06; Stop 01/18/18 at 12:05; Status DC Miscellaneous Information (Post-op Orders (for Pharmacy)) STAT ONCE XX ; Start 01/17/18 at 11:30; Stop 01/17/18 at 11:42; Status DC Morphine Sulfate (Morphine Inj) 3 mg Q3H PRN IV PUSH break thru pain; Start at 11:30 Naloxone HCl (Narcan Inj) 0.4 mg UNSCH PRN IV PUSH RESPIRATORY RATE LESS THAN 10; Start 01/17/18 at 11:30 Ondansetron HCl (Zofran Inj) 4 mg Q4H PRN IVP NAUSEA OR VOMITING Last administered on 01/19/18at 13:06; Start 01/17/18 at 11:30 Pantoprazole Sodium (Protonix) 40 mg DAILY PO Last administered on 01/20/18at 08 :55; Start 01/18/18 at 09:00 Potassium Chloride (KCl) 20 meq Q12HR PO Last administered on 01/20/18at 08:55; Start 01/17/18 at 21:00 Povidone Iodine (Betadine 5% Antisepsis Kit) 1 applic PUBLIC POLICY PROFESSOR PRN EACH NARE SEE LABEL COMMENTS Last administered on 01/17/18at 07:46; Start 01/17/18 at 06:30 ; Stop 01/20/18 at 06:29; Status DC Senna/Docusate Sodium (Vaishali-Colace) 1 tab BID PO Last administered on at 20:45; Start 01/17/18 at 21:00 Sodium Chloride 250 ml @ 15 mls/hr ONCE ONCE IV Last administered on at 11:55; Start 01/19/18 at 09:30; Stop 01/20/18 at 02:09; Status DC Tranexamic Acid 802.5 mg/Sodium Chloride 108.025 ml @ 200 mls/ hr ONCE IV ; Start 01/17/18 at 06:30; Stop 01/18/18 at 06:29; Status DC Vancomycin HCl 1000 mg/Sodium Chloride 250 ml @ 250 mls/hr Q24H IV Last administered on 01/19/18at 10:17; Start 01/18/18 at 11:00; Stop 01/19/18 at 12:16 ; Status DC Vancomycin/Sodium Chloride 200 ml @ 200 mls/hr PUBLIC POLICY PROFESSOR IV Last administered on 01/17/18at 09:45; Start 01/17/18 at 06:45; Stop 01/17/18 at 18:30; Status DC A/P Assessment and Plan Left femur periprosthetic fracture now status post ORIF -Management per orthopedic sx. anemia- post-op s/p PRBC transfusion with improved H/H- A. fib -Continue home diltiazem and Toprol xL -Given stroke risk, Eliquis is appropriate to continue Hypertension -Stable at this time, continue home medications Hx of DVT - continue eliquis 5 mg BID DM - on home metformin - modified diet right possible radius fx - remain in cast, to f/u with original orthopedic surgeon for further management Discharge Planning dc planning per ortho. Ashkan Reyes MD Jan 20, 2018 09:34
[2018-01-20 12:00] VITALS: BP 131/65; PULSE 98; RESP 18; TEMP 98.1; O2SAT 97
[2018-01-20 16:00] VITALS: BP 135/63; PULSE 69; RESP 16; TEMP 98.2; O2SAT 95
[2018-01-20 19:45] VITALS: BP 134/61; PULSE 62; RESP 18; TEMP 98.2; O2SAT 100
[2018-01-20 23:25] VITALS: BP 141/88; PULSE 79; RESP 17; TEMP 98.2; O2SAT 97
[2018-01-21] MEDS: LACTATED RINGER'S 1000 ML INJ 1,000 ML IV SCH ×2 (03:00→08:14)
[2018-01-21 08:00] VITALS: BP 153/68; PULSE 92; RESP 18; TEMP 98.4; O2SAT 97
[2018-01-21] MEDS: INSULIN NovoLIN REGULAR SUPPLEMENTAL SCALE SQ SCH ×4 (08:00→21:59)
[2018-01-21] MEDS: METOPROLOL SUCCINATE 25 MG EXTENDED RELEASE TAB PO SCH (08:06)
[2018-01-21] MEDS: metFORMIN HCL 500 MG TAB PO SCH ×2 (08:07→16:07)
[2018-01-21] MEDS: DILTIAZEM HCL 60 MG TAB PO SCH ×4 (08:07→22:01)
[2018-01-21] MEDS: POTASSIUM CHLORIDE 20 MEQ CONTROLLED RELEASE TAB PO SCH ×2 (08:07→22:01)
[2018-01-21] MEDS: CHOLECALCIFEROL (VIT D3) 1000 UNIT TAB PO SCH (08:07)
[2018-01-21] MEDS: PANTOPRAZOLE SOD 40 MG DELAYED RELEASE TAB PO SCH (08:07)
[2018-01-21] MEDS: FERROUS SULFATE 325 MG (65 MG ELEMENTAL IRON) TAB PO SCH (08:08)
[2018-01-21] MEDS: APIXABAN 5 MG TABLET PO SCH ×2 (08:08→22:01)
[2018-01-21] MEDS: DOCUSATE SODIUM 50 MG/SENNA 8.6 MG TAB PO SCH ×2 (08:08→22:01)
--- NOTE | 2018-01-21 10:29 | PD.ORT.PN ---
Subjective Subjective Remarks Patient comfortable. Pain controlled. OOB sitting in recliner. Patient's sister present Objective Vitals Vital Signs Date Time Temp Pulse Resp B/P (MAP) Pulse Ox O2 Delivery O2 Flow Rate FiO2 01/21/18 08:00 98.4 92 18 153/68 (96) 97 01/20/18 23:25 98.2 79 17 141/88 (105) 97 01/20/18 19:45 98.2 62 18 134/61 (85) 100 01/20/18 17:48 21 01/20/18 16:00 98.2 69 16 135/63 (87) 95 01/20/18 12:00 98.1 98 18 131/65 (87) 97 I/O 01/20/18 01/20/18 01/20/18 01/21/18 01/21/18 01/21/18 07:00 15:00 23:00 07:00 15:00 23:00 Intake Total 480 ml 1200 ml 480 ml Balance 480 ml 1200 ml 480 ml Intake Oral 480 ml 600 ml 480 ml IV Total 600 ml # Voids 3 4 6 # Bowel Movements 0 4 3 Result Diagram: 01/20/18 0640 01/17/18 0720 Imaging Last 72 hours Impressions Femur X-Ray 01/17/18 0000 Signed Impressions: Service Date/Time: Wednesday, January 17, 2018 11:10 - CONCLUSION: 1. Fixation left femur. Satnam Walker MD Chest X-Ray 01/17/18 0000 Signed Impressions: Service Date/Time: Wednesday, January 17, 2018 06:29 - CONCLUSION: No acute disease. Drew Reyes MD Objective Remarks Left lower extremity: Clean dry dressings intact. Mild swelling. Distally intact sensation good capillary refills Assessment & Plan Assessment and Plan 1) Left periprosthetic proximal femur fracture with open reduction internal fixation POD 4 PT - Nonweightbearing left lower extremity Daily dressing changes DVT prophylaxis - Lovenox Incentive spirometry Case management for rehabilitation placement - discharge when bed available Follow-up with Dr. Kay or PA in 2 weeks Parker Cooley Jan 21, 2018 10:29
[2018-01-21 11:10] VITALS: BP 134/60; PULSE 86; RESP 16; TEMP 98.4; O2SAT 97
--- NOTE | 2018-01-21 11:16 | HHI.PR ---
Subjective Remarks resting comfortably with no distress. pain is controlled. no new complaints. d/w the RN and no acute issues over night. Objective Vitals Vital Signs Date Time Temp Pulse Resp B/P (MAP) Pulse Ox O2 Delivery O2 Flow Rate FiO2 01/21/18 11:10 98.4 86 16 134/60 (84) 97 01/21/18 08:00 98.4 92 18 153/68 (96) 97 01/20/18 23:25 98.2 79 17 141/88 (105) 97 01/20/18 19:45 98.2 62 18 134/61 (85) 100 01/20/18 17:48 21 01/20/18 16:00 98.2 69 16 135/63 (87) 95 01/20/18 12:00 98.1 98 18 131/65 (87) 97 I/O 01/20/18 01/20/18 01/20/18 01/21/18 01/21/18 01/21/18 07:00 15:00 23:00 07:00 15:00 23:00 Intake Total 480 ml 1200 ml 480 ml Balance 480 ml 1200 ml 480 ml Intake Oral 480 ml 600 ml 480 ml IV Total 600 ml # Voids 3 4 6 # Bowel Movements 0 4 4 Result Diagram: 01/20/18 0640 01/17/18 0720 Imaging Last Impressions Femur X-Ray 01/17/18 0000 Signed Impressions: Service Date/Time: Wednesday, January 17, 2018 11:10 - CONCLUSION: 1. Fixation left femur. Satnam Walker MD Chest X-Ray 01/17/18 0000 Signed Impressions: Service Date/Time: Wednesday, January 17, 2018 06:29 - CONCLUSION: No acute disease. Drew Reyes MD Objective Remarks GENERAL: This is a well-nourished, well-developed patient, in no apparent distress. CARDIOVASCULAR: Regular rate and regular rhythm without murmurs, gallops, or rubs. RESPIRATORY: Clear to auscultation. Breath sounds equal bilaterally. No wheezes , rales, or rhonchi. GASTROINTESTINAL: Abdomen soft, non-tender, nondistended. Normal, active bowel sounds MUSCULOSKELETAL: Extremities without clubbing, cyanosis, or edema. NEURO: Alert & Oriented x4 to person, place, time, situation. Moves all ext x4 Medications and IVs Inpatient Medications Acetaminophen/ Hydrocodone Bitart ([place] 7.5-325 Mg) 1 tab Q3H PRN PO PAIN 3< 10 Last administered on 01/20/18at 08:56; Start 01/17/18 at 11:30 Apixaban (Eliquis) 5 mg BID PO Last administered on 01/21/18at 08:08; Start at 09:00 Bacitracin (Baciguent Oint) APPLY WITH DRESSING CHANGES UNSCH PRN TOPICAL WITH DRESSING CHANGES Last administered on 01/20/18at 04:23; Start 01/19/18 at 02:30 Cefazolin Sodium 2000 mg/Sodium Chloride 120 ml @ 100 mls/hr Q8H IV Last administered on 01/19/18at 09:10; Start 01/17/18 at 18:00; Stop 01/19/18 at 11:11 ; Status DC Chlorhexidine Gluconate (Chlorhexidine 2% Cloth) 3 pack PET SITTING PRN TOPICAL SEE LABEL COMMENTS Last administered on 01/17/18at 07:48; Start 01/17/18 at 06:30 ; Stop 01/20/18 at 06:29; Status DC Chlorhexidine Gluconate (Hibiclens 4% Top Soln) 1 applic ONCE TOPICAL ; Start at 06:30; Stop 01/20/18 at 06:29; Status DC Cholecalciferol (Vitamin D3) 1,000 units DAILY PO Last administered on at 08:07; Start 01/18/18 at 09:00 Dextrose (D50w (Vial) Inj) 50 ml UNSCH PRN IV PUSH HYPOGLYCEMIA-SEE COMMENTS; Start 01/17/18 at 11:45 Diltiazem HCl (Cardizem Inj) 5 mg NOW ONCE IV ; Start 01/17/18 at 15:00; Stop 01/17/18 at 15:01; Status DC Diltiazem HCl (Cardizem) 60 mg QID PO Last administered on 01/21/18at 08:07; Start 01/17/18 at 13:00 Diphenhydramine HCl (Benadryl) 25 mg Q6H PRN PO ITCHING; Start 01/17/18 at 11: 30 Enoxaparin Sodium (Lovenox Inj) 30 mg Q24H SQ ; Start 01/17/18 at 11:30; Stop at 11:37; Status DC Ergocalciferol (Drisdol) 50,000 units Q7D PO ; Start 01/17/18 at 11:30 Ferrous Sulfate (Ferrous Sulfate) 325 mg DAILY PO Last administered on at 08:08; Start 01/18/18 at 09:00 Glucagon (Glucagon Inj) 1 mg UNSCH PRN OTHER HYPOGLYCEMIA-SEE COMMENTS; Start 01/17/18 at 11:45 Insulin Human Regular (NovoLIN R SUPPLEMENTAL SCALE) 1 ACHS SQ Last administered on 01/20/18at 20:50; Start 01/17/18 at 12:00 Insulin Human Regular (NovoLIN R INJ) See Protocol Table ... PET SITTING PRN SQ SEE PROTOCOL TABLE; Start 01/17/18 at 06:30; Stop 01/20/18 at 06:29; Status DC Lactated Ringer's 1,000 ml @ 80 mls/hr [id number] IV Last administered on at 11:30; Start 01/17/18 at 11:30 Metformin HCl (Glucophage) 500 mg BIDPC PO Last administered on 01/21/18at 08:07 ; Start 01/17/18 at 18:00 Metoprolol Succinate (Toprol Xl) 25 mg DAILY PO Last administered on 01/21/18at 08:06; Start 01/18/18 at 09:00 Metoprolol Tartrate (Lopressor) 25 mg PET SITTING PRN PO SEE LABEL COMMENTS Last administered on 01/18/18at 09:34; Start 01/17/18 at 06:30; Stop 01/20/18 at 06:29 ; Status DC Miscellaneous Information ALL NURSING DEPARTME... UNSCH PRN .XX SEE LABEL COMMENTS; Start 01/17/18 at 12:06; Stop 01/18/18 at 12:05; Status DC Miscellaneous Information (Post-op Orders (for Pharmacy)) STAT ONCE XX ; Start 01/17/18 at 11:30; Stop 01/17/18 at 11:42; Status DC Morphine Sulfate (Morphine Inj) 3 mg Q3H PRN IV PUSH break thru pain; Start at 11:30 Naloxone HCl (Narcan Inj) 0.4 mg UNSCH PRN IV PUSH RESPIRATORY RATE LESS THAN 10; Start 01/17/18 at 11:30 Ondansetron HCl (Zofran Inj) 4 mg Q4H PRN IVP NAUSEA OR VOMITING Last administered on 01/19/18at 13:06; Start 01/17/18 at 11:30 Pantoprazole Sodium (Protonix) 40 mg DAILY PO Last administered on 01/21/18 08 :07; Start 01/18/18 at 09:00 Potassium Chloride (KCl) 20 meq Q12HR PO Last administered on 01/21/18at 08:07; Start 01/17/18 at 21:00 Povidone Iodine (Betadine 5% Antisepsis Kit) 1 applic PET SITTING PRN EACH NARE SEE LABEL COMMENTS Last administered on 01/17/18at 07:46; Start 01/17/18 at 06:30 ; Stop 01/20/18 at 06:29; Status DC Senna/Docusate Sodium (Vaishali-Colace) 1 tab BID PO Last administered on at 20:45; Start 01/17/18 at 21:00 Sodium Chloride 250 ml @ 15 mls/hr ONCE ONCE IV Last administered on at 11:55; Start 01/19/18 at 09:30; Stop 01/20/18 at 02:09; Status DC Tranexamic Acid 802.5 mg/Sodium Chloride 108.025 ml @ 200 mls/ hr ONCE IV ; Start 01/17/18 at 06:30; Stop 01/18/18 at 06:29; Status DC Vancomycin HCl 1000 mg/Sodium Chloride 250 ml @ 250 mls/hr Q24H IV Last administered on 01/19/18at 10:17; Start 01/18/18 at 11:00; Stop 01/19/18 at 12:16 ; Status DC Vancomycin/Sodium Chloride 200 ml @ 200 mls/hr PET SITTING IV Last administered on 01/17/18at 09:45; Start 01/17/18 at 06:45; Stop 01/17/18 at 18:30; Status DC A/P Assessment and Plan Left femur periprosthetic fracture now status post ORIF -Management per orthopedic sx. anemia- post-op s/p PRBC transfusion with improved H/H- A. fib -Continue home diltiazem and Toprol xL -Given stroke risk, Eliquis is appropriate to continue Hypertension -Stable at this time, continue home medications Hx of DVT - continue eliquis 5 mg BID DM - on home metformin - modified diet right possible radius fx - remain in cast, to f/u with original orthopedic surgeon for further management Discharge Planning dc planning per ortho. Ashkan Reyes MD Jan 21, 2018 11:16
[2018-01-21 16:05] VITALS: BP 142/64; PULSE 76; RESP 17; TEMP 98.3; O2SAT 96
[2018-01-21 19:38] VITALS: BP 151/65; PULSE 77; RESP 17; TEMP 99.5; O2SAT 99
[2018-01-21 23:39] VITALS: BP 156/76; PULSE 79; RESP 17; TEMP 98.5; O2SAT 98
[2018-01-22] MEDS: LACTATED RINGER'S 1000 ML INJ 1,000 ML IV SCH ×2 (04:00→12:51)
[2018-01-22] MEDS: ACETAMINOPHEN/HYDROcodone 325 MG/7.5 MG TAB PO PRN ×2 (05:53→14:22)
[2018-01-22 07:57] VITALS: BP 155/69; PULSE 72; RESP 18; TEMP 97.7; O2SAT 98
[2018-01-22] MEDS: DOCUSATE SODIUM 50 MG/SENNA 8.6 MG TAB PO SCH ×2 (07:57→08:55)
[2018-01-22] MEDS: INSULIN NovoLIN REGULAR SUPPLEMENTAL SCALE SQ SCH ×4 (08:00→20:05)
[2018-01-22] MEDS: PANTOPRAZOLE SOD 40 MG DELAYED RELEASE TAB PO SCH (08:55)
[2018-01-22] MEDS: DILTIAZEM HCL 60 MG TAB PO SCH ×4 (08:55→20:05)
[2018-01-22] MEDS: APIXABAN 5 MG TABLET PO SCH ×2 (08:55→20:04)
[2018-01-22] MEDS: CHOLECALCIFEROL (VIT D3) 1000 UNIT TAB PO SCH (08:55)
[2018-01-22] MEDS: METOPROLOL SUCCINATE 25 MG EXTENDED RELEASE TAB PO SCH (08:55)
[2018-01-22] MEDS: FERROUS SULFATE 325 MG (65 MG ELEMENTAL IRON) TAB PO SCH (08:55)
[2018-01-22] MEDS: metFORMIN HCL 500 MG TAB PO SCH ×2 (08:55→16:51)
[2018-01-22] MEDS: POTASSIUM CHLORIDE 20 MEQ CONTROLLED RELEASE TAB PO SCH ×2 (08:56→20:04)
[2018-01-22 10:18] VITALS: BP 126/72; PULSE 110; RESP 18; TEMP 98.1; O2SAT 95
--- NOTE | 2018-01-22 10:33 | PD.ORT.PN ---
Subjective Subjective Remarks Patient comfortable. Pain controlled. OOB sitting in recliner. Objective Vitals Vital Signs Date Time Temp Pulse Resp B/P (MAP) Pulse Ox O2 Delivery O2 Flow Rate FiO2 01/22/18 07:57 97.7 72 18 155/69 (97) 98 01/21/18 23:39 98.5 79 17 156/76 (102) 98 01/21/18 19:38 99.5 77 17 151/65 (93) 99 01/21/18 16:05 98.3 76 17 142/64 (90) 96 01/21/18 11:10 98.4 86 16 134/60 (84) 97 I/O 01/21/18 01/21/18 01/21/18 01/22/18 01/22/18 01/22/18 07:00 15:00 23:00 07:00 15:00 23:00 Intake Total 1200 ml 240 ml Balance 1200 ml 240 ml Intake Oral 1200 ml 240 ml # Voids 9 3 # Bowel Movements 6 2 Result Diagram: 01/20/18 0640 Imaging Last 72 hours Impressions Femur X-Ray 01/17/18 0000 Signed Impressions: Service Date/Time: Wednesday, January 17, 2018 11:10 - CONCLUSION: 1. Fixation left femur. Satnam Walker MD Chest X-Ray 01/17/18 0000 Signed Impressions: Service Date/Time: Wednesday, January 17, 2018 06:29 - CONCLUSION: No acute disease. Drew Reyes MD Objective Remarks Left lower extremity: Clean dry dressings intact. Distally intact sensation good capillary refills Assessment & Plan Assessment and Plan 1) Left periprosthetic proximal femur fracture with open reduction internal fixation POD 5 PT - Nonweightbearing left lower extremity Daily dressing changes DVT prophylaxis - Lovenox Incentive spirometry Case management for rehabilitation placement - discharge when bed available Follow-up with Dr. Kay or PA in 2 weeks Parker Cooley Jan 22, 2018 10:33
--- NOTE | 2018-01-22 11:40 | HHI.PR ---
Subjective Remarks resting comfortably with no distress. pain is controlled. no new complaints. Objective Vitals Vital Signs Date Time Temp Pulse Resp B/P (MAP) Pulse Ox O2 Delivery O2 Flow Rate FiO2 01/22/18 07:57 97.7 72 18 155/69 (97) 98 01/21/18 23:39 98.5 79 17 156/76 (102) 98 01/21/18 19:38 99.5 77 17 151/65 (93) 99 01/21/18 16:05 98.3 76 17 142/64 (90) 96 I/O 01/21/18 01/21/18 01/21/18 01/22/18 01/22/18 01/22/18 07:00 15:00 23:00 07:00 15:00 23:00 Intake Total 1200 ml 240 ml Balance 1200 ml 240 ml Intake Oral 1200 ml 240 ml # Voids 9 3 # Bowel Movements 6 2 Result Diagram: 01/20/18 0640 Imaging Last Impressions Femur X-Ray 01/17/18 0000 Signed Impressions: Service Date/Time: Wednesday, January 17, 2018 11:10 - CONCLUSION: 1. Fixation left femur. Satnam Walker MD Chest X-Ray 01/17/18 0000 Signed Impressions: Service Date/Time: Wednesday, January 17, 2018 06:29 - CONCLUSION: No acute disease. Drew Reyes MD Objective Remarks GENERAL: This is a well-nourished, well-developed patient, in no apparent distress. CARDIOVASCULAR: Regular rate and regular rhythm without murmurs, gallops, or rubs. RESPIRATORY: Clear to auscultation. Breath sounds equal bilaterally. No wheezes , rales, or rhonchi. GASTROINTESTINAL: Abdomen soft, non-tender, nondistended. Normal, active bowel sounds MUSCULOSKELETAL: Extremities without clubbing, cyanosis, or edema. NEURO: Alert & Oriented x4 to person, place, time, situation. Moves all ext x4 Medications and IVs Inpatient Medications Acetaminophen/ Hydrocodone Bitart ([place] 7.5-325 Mg) 1 tab Q3H PRN PO PAIN 3< 10 Last administered on 01/22/18at 05:53; Start 01/17/18 at 11:30 Apixaban (Eliquis) 5 mg BID PO Last administered on 01/22/18at 08:55; Start 01/18 at 09:00 Bacitracin (Baciguent Oint) APPLY WITH DRESSING CHANGES UNSCH PRN TOPICAL WITH DRESSING CHANGES Last administered on 01/20/18at 04:23; Start 01/19/18 at 02:30 Cefazolin Sodium 2000 mg/Sodium Chloride 120 ml @ 100 mls/hr Q8H IV Last administered on 01/19/18at 09:10; Start 01/17/18 at 18:00; Stop 01/19/18 at 11:11 ; Status DC Chlorhexidine Gluconate (Chlorhexidine 2% Cloth) 3 pack MOTOR OVERHAULER PRN TOPICAL SEE LABEL COMMENTS Last administered on 01/17/18at 07:48; Start 01/17/18 at 06:30 ; Stop 01/20/18 at 06:29; Status DC Chlorhexidine Gluconate (Hibiclens 4% Top Soln) 1 applic ONCE TOPICAL ; Start at 06:30; Stop 01/20/18 at 06:29; Status DC Cholecalciferol (Vitamin D3) 1,000 units DAILY PO Last administered on at 08:55; Start 01/18/18 at 09:00 Dextrose (D50w (Vial) Inj) 50 ml UNSCH PRN IV PUSH HYPOGLYCEMIA-SEE COMMENTS; Start 01/17/18 at 11:45 Diltiazem HCl (Cardizem Inj) 5 mg NOW ONCE IV ; Start 01/17/18 at 15:00; Stop 01/17/18 at 15:01; Status DC Diltiazem HCl (Cardizem) 60 mg QID PO Last administered on 01/22/18at 08:55; Start 01/17/18 at 13:00 Diphenhydramine HCl (Benadryl) 25 mg Q6H PRN PO ITCHING; Start 01/17/18 at 11: 30 Enoxaparin Sodium (Lovenox Inj) 30 mg Q24H SQ ; Start 01/17/18 at 11:30; Stop at 11:37; Status DC Ergocalciferol (Drisdol) 50,000 units Q7D PO ; Start 01/17/18 at 11:30 Ferrous Sulfate (Ferrous Sulfate) 325 mg DAILY PO Last administered on at 08:55; Start 01/18/18 at 09:00 Glucagon (Glucagon Inj) 1 mg UNSCH PRN OTHER HYPOGLYCEMIA-SEE COMMENTS; Start 01/17/18 at 11:45 Insulin Human Regular (NovoLIN R SUPPLEMENTAL SCALE) 1 ACHS SQ Last administered on 01/21/18at 16:12; Start 01/17/18 at 12:00 Insulin Human Regular (NovoLIN R INJ) See Protocol Table ... MOTOR OVERHAULER PRN SQ SEE PROTOCOL TABLE; Start 01/17/18 at 06:30; Stop 01/20/18 at 06:29; Status DC Lactated Ringer's 1,000 ml @ 80 mls/hr [id number] IV Last administered on at 11:30; Start 01/17/18 at 11:30 Metformin HCl (Glucophage) 500 mg BIDPC PO Last administered on 01/22/18at 08:55 ; Start 01/17/18 at 18:00 Metoprolol Succinate (Toprol Xl) 25 mg DAILY PO Last administered on 01/22/18at 08:55; Start 01/18/18 at 09:00 Metoprolol Tartrate (Lopressor) 25 mg MOTOR OVERHAULER PRN PO SEE LABEL COMMENTS Last administered on 01/18/18at 09:34; Start 01/17/18 at 06:30; Stop 01/20/18 at 06:29 ; Status DC Miscellaneous Information ALL NURSING DEPARTME... UNSCH PRN .XX SEE LABEL COMMENTS; Start 01/17/18 at 12:06; Stop 01/18/18 at 12:05; Status DC Miscellaneous Information (Post-op Orders (for Pharmacy)) STAT ONCE XX ; Start 01/17/18 at 11:30; Stop 01/17/18 at 11:42; Status DC Morphine Sulfate (Morphine Inj) 3 mg Q3H PRN IV PUSH break thru pain; Start at 11:30 Naloxone HCl (Narcan Inj) 0.4 mg UNSCH PRN IV PUSH RESPIRATORY RATE LESS THAN 10; Start 01/17/18 at 11:30 Ondansetron HCl (Zofran Inj) 4 mg Q4H PRN IVP NAUSEA OR VOMITING Last administered on 01/19/18at 13:06; Start 01/17/18 at 11:30 Pantoprazole Sodium (Protonix) 40 mg DAILY PO Last administered on 01/22/18 08: 55; Start 01/18/18 at 09:00 Potassium Chloride (KCl) 20 meq Q12HR PO Last administered on 01/22/18 08:56; Start 01/17/18 at 21:00 Povidone Iodine (Betadine 5% Antisepsis Kit) 1 applic MOTOR OVERHAULER PRN EACH NARE SEE LABEL COMMENTS Last administered on 01/17/18 07:46; Start 01/17/18 at 06:30 ; Stop 01/20/18 at 06:29; Status DC Senna/Docusate Sodium (Vaishali-Colace) 1 tab BID PO Last administered on 01/22/18 08:55; Start 01/17/18 at 21:00 Sodium Chloride 250 ml @ 15 mls/hr ONCE ONCE IV Last administered on 11:55; Start 01/19/18 at 09:30; Stop 01/20/18 at 02:09; Status DC Tranexamic Acid 802.5 mg/Sodium Chloride 108.025 ml @ 200 mls/ hr ONCE IV ; Start 01/17/18 at 06:30; Stop 01/18/18 at 06:29; Status DC Vancomycin HCl 1000 mg/Sodium Chloride 250 ml @ 250 mls/hr Q24H IV Last administered on 01/19/18at 10:17; Start 01/18/18 at 11:00; Stop 01/19/18 at 12:16 ; Status DC Vancomycin/Sodium Chloride 200 ml @ 200 mls/hr MOTOR OVERHAULER IV Last administered on 01/17/18at 09:45; Start 01/17/18 at 06:45; Stop 01/17/18 at 18:30; Status DC A/P Assessment and Plan Left femur periprosthetic fracture now status post ORIF -Management per orthopedic sx. anemia- post-op s/p PRBC transfusion with improved H/H- A. fib -Continue home diltiazem and Toprol xL -Given stroke risk, Eliquis is appropriate to continue Hypertension -Stable at this time, continue home medications Hx of DVT - continue eliquis 5 mg BID DM - on home metformin - modified diet right possible radius fx - remain in cast, to f/u with original orthopedic surgeon for further management Discharge Planning dc planning per ortho. Ashkan Reyes MD Jan 22, 2018 11:40
[2018-01-22 16:00] VITALS: BP 161/79; PULSE 65; RESP 18; TEMP 97.9; O2SAT 94
[2018-01-22 20:02] VITALS: BP 139/64; PULSE 58; RESP 17; TEMP 98; O2SAT 92
[2018-01-22 23:55] VITALS: BP 140/67; PULSE 85; RESP 18; TEMP 98.4; O2SAT 92
[2018-01-23] MEDS: LACTATED RINGER'S 1000 ML INJ 1,000 ML IV SCH ×2 (05:00→16:45)
--- NOTE | 2018-01-23 06:34 | PD.ORT.PN ---
Subjective Subjective Remarks Pain controlled and doing well. Objective Vitals Vital Signs Date Time Temp Pulse Resp B/P (MAP) Pulse Ox O2 Delivery O2 Flow Rate FiO2 01/23/18 00:06 21 01/22/18 23:55 98.4 85 18 140/67 (91) 92 01/22/18 20:02 98.0 58 17 139/64 (89) 92 01/22/18 16:00 97.9 65 18 161/79 (106) 94 01/22/18 10:18 98.1 110 18 126/72 (90) 95 01/22/18 07:57 97.7 72 18 155/69 (97) 98 I/O 01/22/18 01/22/18 01/22/18 01/23/18 01/23/18 01/23/18 07:00 15:00 23:00 07:00 15:00 23:00 Intake Total 240 ml 720 ml 480 ml Balance 240 ml 720 ml 480 ml Intake Oral 240 ml 720 ml 480 ml # Voids 3 3 3 # Bowel Movements 2 1 2 Result Diagram: 01/20/18 0640 Imaging Last 72 hours Impressions Femur X-Ray 01/17/18 0000 Signed Impressions: Service Date/Time: Wednesday, January 17, 2018 11:10 - CONCLUSION: 1. Fixation left femur. Satnam Walker MD Chest X-Ray 01/17/18 0000 Signed Impressions: Service Date/Time: Wednesday, January 17, 2018 06:29 - CONCLUSION: No acute disease. Drew Reyes MD Objective Remarks Left lower extremity: Clean dry dressings intact. Distally intact sensation good capillary refills Assessment & Plan Assessment and Plan 1) Left periprosthetic proximal femur fracture with open reduction internal fixation POD 6 PT - Nonweightbearing left lower extremity Daily dressing changes DVT prophylaxis - Lovenox Incentive spirometry Case management for rehabilitation placement - discharge when bed available Follow-up with Dr. Kya or PA in 2 weeks Dhruv Murrieta Jr. Jan 23, 2018 06:34
[2018-01-23] MEDS: INSULIN NovoLIN REGULAR SUPPLEMENTAL SCALE SQ SCH ×3 (07:01→16:45)
[2018-01-23 08:10] VITALS: BP 162/83; PULSE 106; RESP 18; TEMP 98; O2SAT 97
[2018-01-23] MEDS: CHOLECALCIFEROL (VIT D3) 1000 UNIT TAB PO SCH (08:17)
[2018-01-23] MEDS: DILTIAZEM HCL 60 MG TAB PO SCH ×3 (08:17→17:34)
[2018-01-23] MEDS: metFORMIN HCL 500 MG TAB PO SCH ×2 (08:17→17:34)
[2018-01-23] MEDS: METOPROLOL SUCCINATE 25 MG EXTENDED RELEASE TAB PO SCH (08:17)
[2018-01-23] MEDS: POTASSIUM CHLORIDE 20 MEQ CONTROLLED RELEASE TAB PO SCH (08:17)
[2018-01-23] MEDS: FERROUS SULFATE 325 MG (65 MG ELEMENTAL IRON) TAB PO SCH (08:17)
[2018-01-23] MEDS: PANTOPRAZOLE SOD 40 MG DELAYED RELEASE TAB PO SCH (08:17)
[2018-01-23] MEDS: APIXABAN 5 MG TABLET PO SCH (08:18)
[2018-01-23] MEDS: DOCUSATE SODIUM 50 MG/SENNA 8.6 MG TAB PO SCH (08:18)
[2018-01-23] MEDS: ACETAMINOPHEN/HYDROcodone 325 MG/7.5 MG TAB PO PRN ×2 (08:18→17:34)
[2018-01-23 09:23] VITALS: O2SAT 97
[2018-01-23 11:41] VITALS: BP 159/68; PULSE 75; RESP 17; TEMP 97.7; O2SAT 99
--- NOTE | 2018-01-23 13:39 | HHI.PR ---
Subjective Remarks resting comfortably with no distress. pain is controlled. no new complaints. Objective Vitals Vital Signs Date Time Temp Pulse Resp B/P (MAP) Pulse Ox O2 Delivery O2 Flow Rate FiO2 01/23/18 11:41 97.7 75 17 159/68 (98) 99 01/23/18 09:23 97 01/23/18 08:10 98.0 106 18 162/83 (109) 97 01/23/18 00:06 21 01/22/18 23:55 98.4 85 18 140/67 (91) 92 01/22/18 20:02 98.0 58 17 139/64 (89) 92 01/22/18 16:00 97.9 65 18 161/79 (106) 94 I/O 01/22/18 01/22/18 01/22/18 01/23/18 01/23/18 01/23/18 07:00 15:00 23:00 07:00 15:00 23:00 Intake Total 240 ml 720 ml 480 ml Balance 240 ml 720 ml 480 ml Intake Oral 240 ml 720 ml 480 ml # Voids 3 3 3 # Bowel Movements 2 1 2 Result Diagram: 01/20/18 0640 Imaging Last Impressions Femur X-Ray 01/17/18 0000 Signed Impressions: Service Date/Time: Wednesday, January 17, 2018 11:10 - CONCLUSION: 1. Fixation left femur. Satnam Walker MD Chest X-Ray 01/17/18 0000 Signed Impressions: Service Date/Time: Wednesday, January 17, 2018 06:29 - CONCLUSION: No acute disease. Drew Reyes MD Objective Remarks GENERAL: This is a well-nourished, well-developed patient, in no apparent distress. CARDIOVASCULAR: Regular rate and regular rhythm without murmurs, gallops, or rubs. RESPIRATORY: Clear to auscultation. Breath sounds equal bilaterally. No wheezes , rales, or rhonchi. GASTROINTESTINAL: Abdomen soft, non-tender, nondistended. Normal, active bowel sounds MUSCULOSKELETAL: Extremities without clubbing, cyanosis, or edema. NEURO: Alert & Oriented x4 to person, place, time, situation. Moves all ext x4 Medications and IVs Inpatient Medications Acetaminophen/ Hydrocodone Bitart ([place] 7.5-325 Mg) 1 tab Q3H PRN PO PAIN 3< 10 Last administered on 4/2/18at 08:18; Start 01/17/18 at 11:30 Apixaban (Eliquis) 5 mg BID PO Last administered on 01/23/18at 08:18; Start 01/18 at 09:00 Bacitracin (Baciguent Oint) APPLY WITH DRESSING CHANGES UNSCH PRN TOPICAL WITH DRESSING CHANGES Last administered on 01/20/18at 04:23; Start 01/19/18 at 02:30 Cefazolin Sodium 2000 mg/Sodium Chloride 120 ml @ 100 mls/hr Q8H IV Last administered on 01/19/18at 09:10; Start 01/17/18 at 18:00; Stop 01/19/18 at 11:11 ; Status DC Chlorhexidine Gluconate (Chlorhexidine 2% Cloth) 3 pack DOOR TO [employer]OR SELLING [employer]RIBUTOR PRN TOPICAL SEE LABEL COMMENTS Last administered on 01/17/18at 07:48; Start 01/17/18 at 06:30 ; Stop 01/20/18 at 06:29; Status DC Chlorhexidine Gluconate (Hibiclens 4% Top Soln) 1 applic ONCE TOPICAL ; Start at 06:30; Stop 01/20/18 at 06:29; Status DC Cholecalciferol (Vitamin D3) 1,000 units DAILY PO Last administered on at 08:17; Start 01/18/18 at 09:00 Dextrose (D50w (Vial) Inj) 50 ml UNSCH PRN IV PUSH HYPOGLYCEMIA-SEE COMMENTS; Start 01/17/18 at 11:45 Diltiazem HCl (Cardizem Inj) 5 mg NOW ONCE IV ; Start 01/17/18 at 15:00; Stop 01/17/18 at 15:01; Status DC Diltiazem HCl (Cardizem) 60 mg QID PO Last administered on 01/23/18at 12:00; Start 01/17/18 at 13:00 Diphenhydramine HCl (Benadryl) 25 mg Q6H PRN PO ITCHING; Start 01/17/18 at 11: 30 Enoxaparin Sodium (Lovenox Inj) 30 mg Q24H SQ ; Start 01/17/18 at 11:30; Stop at 11:37; Status DC Ergocalciferol (Drisdol) 50,000 units Q7D PO ; Start 01/17/18 at 11:30 Ferrous Sulfate (Ferrous Sulfate) 325 mg DAILY PO Last administered on at 08:17; Start 01/18/18 at 09:00 Glucagon (Glucagon Inj) 1 mg UNSCH PRN OTHER HYPOGLYCEMIA-SEE COMMENTS; Start 01/17/18 at 11:45 Insulin Human Regular (NovoLIN R SUPPLEMENTAL SCALE) 1 ACHS SQ Last administered on 01/23/18at 11:32; Start 01/17/18 at 12:00 Insulin Human Regular (NovoLIN R INJ) See Protocol Table ... DOOR TO DOOR SELLING DISTRIBUTOR PRN SQ SEE PROTOCOL TABLE; Start 01/17/18 at 06:30; Stop 01/20/18 at 06:29; Status DC Lactated Ringer's 1,000 ml @ 80 mls/hr [id number] IV Last administered on at 11:30; Start 01/17/18 at 11:30 Metformin HCl (Glucophage) 500 mg BIDPC PO Last administered on 01/23/18at 08:17 ; Start 01/17/18 at 18:00 Metoprolol Succinate (Toprol Xl) 25 mg DAILY PO Last administered on 01/23/18at 08:17; Start 01/18/18 at 09:00 Metoprolol Tartrate (Lopressor) 25 mg DOOR TO [employer] SELLING [employer]RI[employer]OR PRN PO SEE LABEL COMMENTS Last administered on 01/18/18at 09:34; Start 01/17/18 at 06:30; Stop 01/20/18 at 06:29 ; Status DC Miscellaneous Information ALL NURSING DEPARTME... UNSCH PRN .XX SEE LABEL COMMENTS; Start 01/17/18 at 12:06; Stop 01/18/18 at 12:05; Status DC Miscellaneous Information (Post-op Orders (for Pharmacy)) STAT ONCE XX ; Start 01/17/18 at 11:30; Stop 01/17/18 at 11:42; Status DC Morphine Sulfate (Morphine Inj) 3 mg Q3H PRN IV PUSH break thru pain; Start at 11:30 Naloxone HCl (Narcan Inj) 0.4 mg UNSCH PRN IV PUSH RESPIRATORY RATE LESS THAN 10; Start 01/17/18 at 11:30 Ondansetron HCl (Zofran Inj) 4 mg Q4H PRN IVP NAUSEA OR VOMITING Last administered on 01/19/18at 13:06; Start 01/17/18 at 11:30 Pantoprazole Sodium (Protonix) 40 mg DAILY PO Last administered on 01/23/18 08: 17; Start 01/18/18 at 09:00 Potassium Chloride (KCl) 20 meq Q12HR PO Last administered on 01/23/18 08:17; Start 01/17/18 at 21:00 Povidone Iodine (Betadine 5% Antisepsis Kit) 1 applic DOOR TO [employer]OR SELLING [employer]RIBUTOR PRN EACH NARE SEE LABEL COMMENTS Last administered on 01/17/18at 07:46; Start 01/17/18 at 06:30 ; Stop 01/20/18 at 06:29; Status DC Senna/Docusate Sodium (Vaishali-Colace) 1 tab BID PO Last administered on 01/22/18at 08:55; Start 01/17/18 at 21:00 Sodium Chloride 250 ml @ 15 mls/hr ONCE ONCE IV Last administered on at 11:55; Start 01/19/18 at 09:30; Stop 01/20/18 at 02:09; Status DC Tranexamic Acid 802.5 mg/Sodium Chloride 108.025 ml @ 200 mls/ hr ONCE IV ; Start 01/17/18 at 06:30; Stop 01/18/18 at 06:29; Status DC Vancomycin HCl 1000 mg/Sodium Chloride 250 ml @ 250 mls/hr Q24H IV Last administered on 01/19/18at 10:17; Start 01/18/18 at 11:00; Stop 01/19/18 at 12:16 ; Status DC Vancomycin/Sodium Chloride 200 ml @ 200 mls/hr DOOR TO [employer] SELLING [employer]RIBUTOR IV Last administered on 01/17/18at 09:45; Start 01/17/18 at 06:45; Stop 01/17/18 at 18:30; Status DC A/P Assessment and Plan Left femur periprosthetic fracture now status post ORIF -Management per orthopedic sx. anemia- acute on chronic- due to blood loss- post-op s/p PRBC transfusion with improved H/H- A. fib -Continue home diltiazem and Toprol xL -Given stroke risk, Eliquis is appropriate to continue Hypertension -Stable at this time, continue home medications Hx of DVT - continue eliquis 5 mg BID DM - on home metformin - modified diet right possible radius fx - remain in cast, to f/u with original orthopedic surgeon for further management Discharge Planning dc planning per ortho. Ashkan Reyes MD Jan 23, 2018 13:39
[2018-01-23 14:43] VITALS: BP 127/64; PULSE 60; RESP 18; TEMP 98; O2SAT 100
--- NOTE | 2018-01-25 12:47 | PQ ---
Physician Query Response Document PATIENT: EZEQUIEL MASON : 1930 ADMIT DATE: 01/17/2018 5:47 AM DISCH DATE: 01/23/2018 5:51 PM RESPONDING PROVIDER #: [email or web address] QUERY TEXT: CDS Clarification Acute blood loss anemia in the setting of ORIF requiring treatment with blood replacement. Other explanation of clinical findings. Unable to determine (no explanation for clinical findings). The patient's Clinical Indicators include: The medical record reflects the following clinical findings, treatment, and risk factors. * Clinical Indicators: H * Risk Factors: ORIF * Treatment: Transfusion 1 unit PRBC, monitor H Please clarify and document your clinical opinion in the progress notes and discharge summary includi ng the definitive and/or presumptive diagnosis (suspected or probable), related to the above clinical findings. Please include clinical findings supporting your diagnosis. Thank you, Miladis Howard CDS: Miladis Howard Patient Unit: [id number] Contact Number: [phone] Room: 1609 Query created by: Miladis Howard on 01/23/2018 8:56 AM RESPONSE TEXT: Acute o chronic [id number]; due to blood loss- Electronically signed by: Ashkan Reyes MD 01/25/2018 12:43 PM
== END 2018-01-23 17:51 | DRG 481 ==
LOC: HSDI 05:47 → N06A 15:19
PROVIDERS: ADMIT Orthopaedic Surgery Orthopaedic Trauma; ATTEND Orthopaedic Surgery Orthopaedic Trauma
PROC: 0QP604Z Removal of Internal Fixation Device from Right Upper Femur, Open Approach (ICD-10-PCS; 2018-01-17)
PROC: 0QS604Z Reposition Right Upper Femur with Internal Fixation Device, Open Approach (ICD-10-PCS; principal; 2018-01-17 09:20)
PROC: 30233N1 Transfusion of Nonautologous Red Blood Cells into Peripheral Vein, Percutaneous Approach (ICD-10-PCS; 2018-01-19)
DX: S72.301K Unspecified fracture of shaft of right femur, subsequent encounter for closed fracture with nonunion (principal); D62 Acute posthemorrhagic anemia; I48.91 Unspecified atrial fibrillation; E11.9 Type 2 diabetes mellitus without complications; D50.0 Iron deficiency anemia secondary to blood loss (chronic); I10 Essential (primary) hypertension; W19.XXXD Unspecified fall, subsequent encounter; Z86.718 Personal history of other venous thrombosis and embolism; M97.01XD Periprosthetic fracture around internal prosthetic right hip joint, subsequent encounter; Z79.01 Long term (current) use of anticoagulants; Z79.84 Long term (current) use of oral hypoglycemic drugs; S52.91XD Unspecified fracture of right forearm, subsequent encounter for closed fracture with routine healing
CPT/HCPCS: 36430; 71045; 73552; 76000; 80048; 82652; 82948; 85014; 85018; 85025; 86850; 86900; 86901; 86920; 87015; 87070; 87102; 87116; 87176; 87205; 87206; 93005; 94150; C1713; C1769; J0131; J0690; J1100; J1170; J1580; J1644; J2270; J2370; J2405; J2550; J2710; J3010; J3370; J7050; J7120; P9016